=== PATIENT | female | born 1960 | race Caucasian/White ===

== ENCOUNTER 2017-08-29 09:33 | Day surgery (SDC) | payer BC ==
[2017-08-29] MEDS: NS 1,000 ML IV (09:58)
[2017-08-29] MEDS ORDERED: PROPOFOL 200 MG/20 ML VIAL As Ordered ×2 (10:11)
== END 2017-08-29 11:48 | disposition home or self-care (01) ==
LOC: M OPP 09:33
DX: K64.0 First degree hemorrhoids (principal); D12.0 Benign neoplasm of cecum; R10.31 Right lower quadrant pain; K22.8 Other specified diseases of esophagus; K44.9 Diaphragmatic hernia without obstruction or gangrene; R12 Heartburn; K21.9 Gastro-esophageal reflux disease without esophagitis; I10 Essential (primary) hypertension; K58.9 Irritable bowel syndrome, unspecified; Z79.899 Other long term (current) drug therapy; Z88.8 Allergy status to other drugs, medicaments and biological substances; Z80.0 Family history of malignant neoplasm of digestive organs; Z78.0 Asymptomatic menopausal state; Z90.49 Acquired absence of other specified parts of digestive tract; Z90.710 Acquired absence of both cervix and uterus
CPT/HCPCS: 45380

== ENCOUNTER → 2022-01-03 | Outpatient (CLI) | payer BC ==
[~2022-01-03] MED LIST: ACET-1349 PO; ACET500T2; ALPR0.25 PO; COLA100C2; CYCL-707 PO; CYCL5TAB PO; DICY10CA13 PO; FIBE625T PO; FIBE62TA PO; FLON1SPR; MAGN1TAB26 PO; OMEP1CAP73 PO; ONDA-83 PO; PERC5TAB8; PROB1CAP PO; PROBCAP4 PO; PROC1CRE5 PR; PROC2.5C PR; PROP10TA56 PO; PROP60CA; RA N1TAB PO; RIZA10TA58 PO; RIZA5TAB52 PO; VENL150C43 PO; VENL75TA2 PO; VITA500038 PO; VITATAB11 PO; ZOFR4TAB16 PO
== END ==
LOC: M LABSMTC 10:50
PROVIDERS: ATTEND Anesthesiology
DX: Z01.818 Encounter for other preprocedural examination (principal); Z11.52 Encounter for screening for COVID-19

== ENCOUNTER 2022-01-05 07:47 | Day surgery (SDC) | payer BC ==
[~2022-01-05] VITALS: Ht 162.6 cm; Wt 70.3 kg
[~2022-01-05 07:47] MED LIST changes: +LIDOCAINE 2% 100MG/5ML SDV (FOR ANES.) As Ordered ONE; +NS 1,000 ML IV ONE; +propofoL 200 MG/20 ML VIAL As Ordered ONE
[2022-01-05] MEDS ORDERED: ELEVIEW SUBMUCOSAL INJ 10ML AMP As Ordered ONE (09:29)
[2022-01-05] MEDS ORDERED: propofoL 200 MG/20 ML VIAL As Ordered ONE (09:52)
[2022-01-05 10:37] VITALS: BP 156/74
== END 2022-01-05 10:59 | disposition home or self-care (01) ==
LOC: M OPP 07:47
PROVIDERS: ATTEND Internal Medicine Gastroenterology
DX: Z12.11 Encounter for screening for malignant neoplasm of colon (principal); Z86.010 Personal history of colon polyps; Z80.0 Family history of malignant neoplasm of digestive organs; D12.0 Benign neoplasm of cecum; D12.4 Benign neoplasm of descending colon; K64.4 Residual hemorrhoidal skin tags; K64.8 Other hemorrhoids; G43.909 Migraine, unspecified, not intractable, without status migrainosus; I10 Essential (primary) hypertension; Z79.51 Long term (current) use of inhaled steroids; Z79.52 Long term (current) use of systemic steroids; Z79.899 Other long term (current) drug therapy; Z88.1 Allergy status to other antibiotic agents; Z88.5 Allergy status to narcotic agent; Z88.6 Allergy status to analgesic agent; Z88.8 Allergy status to other drugs, medicaments and biological substances

== ENCOUNTER → 2022-03-26 | Outpatient (CLI) | payer BC ==
[~2022-03-26] MED LIST changes: -LIDOCAINE 2% 100MG/5ML SDV (FOR ANES.) As Ordered ONE; -NS 1,000 ML IV ONE; -propofoL 200 MG/20 ML VIAL As Ordered ONE
== END ==
LOC: M LABSMTC 11:15
PROVIDERS: ATTEND Anesthesiology
DX: Z01.812 Encounter for preprocedural laboratory examination (principal); Z11.52 Encounter for screening for COVID-19

== ENCOUNTER 2022-03-28 06:49 | Day surgery (SDC) | payer BC ==
[~2022-03-28] VITALS: Ht 162.6 cm; Wt 72.1 kg
[~2022-03-28 06:49] MED LIST changes: +NS 1,000 ML IV ONE; +propofoL 200 MG/20 ML VIAL As Ordered ONE
[2022-03-28 08:44] VITALS: BP 125/83
== END 2022-03-28 08:55 | disposition home or self-care (01) ==
LOC: M OPP 06:49
PROVIDERS: ATTEND Internal Medicine Gastroenterology
DX: Z86.010 Personal history of colon polyps (principal); Z09 Encounter for follow-up examination after completed treatment for conditions other than malignant neoplasm; D12.7 Benign neoplasm of rectosigmoid junction; D12.2 Benign neoplasm of ascending colon; D12.0 Benign neoplasm of cecum; K57.30 Diverticulosis of large intestine without perforation or abscess without bleeding; K64.4 Residual hemorrhoidal skin tags; K64.8 Other hemorrhoids; Z88.3 Allergy status to other anti-infective agents; Z88.6 Allergy status to analgesic agent; Z88.8 Allergy status to other drugs, medicaments and biological substances; Z98.890 Other specified postprocedural states